=== PATIENT | male | born 1975 | race Caucasian/White ===

== ENCOUNTER 2021-02-20 06:56 | Emergency (ER) | payer SELFPAY ==
[2021-02-20 07:02] VITALS: BP 140/96; PULSE 64; RESP 16; TEMP 35.5; O2SAT 99
--- NOTE | 2021-02-20 07:05 | ED.GENADUL_ITS ---
Discharge Plan Disposition Patient Disposition: HOME Condition: Good Discharge Details Clinical Impression: Acute bacterial conjunctivitis ED Provider: Bang Bolton Home Meds and New Rx's Prescriptions: No Action No Known Home Meds RF: 0 Discharge Instructions Instructions: Conjunctivitis (ED) Additional Instructions: At this time you have evidence of bacterial conjunctivitis in your right eye, it is probably starting in your left eye soon. Please apply the Cipro drops, 2 drops to each eye every 4 hours. Use this for the next 5 to 7 days. Use warm compresses on your eyes throughout the day to prevent any crusting. If you notice any worsening of your symptoms, or any new symptoms such as vomiting, diarrhea, fever, chills, shortness of breath, chest pain, numbness, weakness, or fainting , please return immediately to the emergency department for reevaluation. Please follow up with your primary care provider as soon as possible for reassessment and reevaluation. As always, it was a pleasure participating in your medical care today. Medical Decision Making 46-year-old male with no significant past medical history who presents today for right eye irritation and crusting for the last week and 1 day of crusting and irritation of the left eye. Patient states that he has been trying to wash it gently, and is noticed some blurriness in his right eye. Mild irritation and itchy sensation in his right eye since his symptoms began. He has noticed crusting on his eye in the morning when he wakes up. This morning he noticed it for the first time out of his left eye. His right eye is slightly blurry with the crusting and discharge and irritation. He denies a history of STDs. No history of glaucoma. No severe pain. No change in vision otherwise. No other complaints at this time. Patient does not wear contact lenses. Physical exam demonstrates evidence of mild conjunctivitis in the right eye. No tenderness on palpation of the eye. Pressures symmetric in both eyes, no evidence clinically of glaucoma. No history of STDs. Symptoms suggest at this time evidence of bacterial conjunctivitis. Will recommend Cipro, we will give the bottle dropper here, recommend to drop in each eye every 4-6 hours. Discussed red flags which to return. I have extensively reviewed the treatment plan and discharge instructions with the patient. I have addressed all patient concerns at this time. The patient was made aware of what symptoms to monitor for that would warrant a return to the emergency department. Discussed the plan with the patient, they demonstrate verbal understanding and agreement with our assessment and plan at this time. The documentation in this chart was dictated using [employer] dictation software. Please excuse any dictation errors. HPI General Date/Time Provider Initiated Documentation: 02/20/21 06:56 . HPI Narrative: 46-year-old male with no significant past medical history who presents today for right eye irritation and crusting for the last week and 1 day of crusting and irritation of the left eye. Patient states that he has been trying to wash it gently, and is noticed some blurriness in his right eye. Mild irritation and itchy sensation in his right eye since his symptoms began. He has noticed crusting on his eye in the morning when he wakes up. This morning he noticed it for the first time out of his left eye. His right eye is slightly blurry with the crusting and discharge and irritation. He denies a history of STDs. No history of glaucoma. No severe pain. No change in vision otherwise. No other complaints at this time. Patient does not wear contact lenses. Related Data Home Medications Medication Instructions Recorded Confirmed Unknown [No Known Home Meds] 02/20/21 02/20/21 Allergies Allergy/AdvReac Type Severity Reaction Status Date / Time No Known Allergies Allergy Unverified 02/20/21 07:08 Review of Systems All systems reviewed & are unremarkable except as noted in HPI and below FOR[facility] Surgical History shoulder surgery Social History Smoking/Tobacco Use Status: Current every day Tobacco Type: cigarettes Smoking risk assessment performed?: Yes Drug use: Occasionally Substance use type: marijuana Exam Narrative Exam Narrative: 1.Const: Well-nourished, Well-developed, appearing stated age 2.Eyes: PERRL and symmetrical lids. Right eye EOMI, PERRL, notable conjunctival injection peripheral vision intact. No nystagmus. No clinical signs of septal/orbital cellulitis, no redness around the eye, no proptosis. No hyphema, no signs of trauma around the eye, no periorbital emphysema. No sluggishness of the pupil. No ophthalmoplegia. No afferent pupillary defect. Fluorescein exam is negative for corneal abrasion, negative Dada sign. Visual acuity as documented in nursing chart. Palpation of the eye demonstrates no tenderness whatsoever. No asymmetric firmness to suggest glaucoma Left eye: Unremarkable 3.ENT: Atraumatic external nose and ears. Moist MM. Neck: Symmetric, trachea m idline, No thyromegaly. 4.CVS: +S1/S2, No murmurs or gallops. Peripheral pulses 2+ and equal in all extremities. Brisk capillary refill in all extremities. 5.RESP: Unlabored respiratory effort. Clear to auscultation bilaterally. No wheezes rales or rhonchi 6.GI: Soft, Nontender/Nondistended, No hepatosplenomegaly. No guarding or rebound. 7.MSK: Normocephalic/Atraumatic, Extremities w/o deformity or ttp No cyanosis or clubbing, Normal movement of all extremities 8.Skin: Warm, Dry. No rashes or lesions. 9.Neuro: defence force member other ranks II-XII grossly intact. Sensation grossly intact, no focal neurolo gic deficits. 10.Psych: (AAO) x3. Appropriate mood and affect
[2021-02-20] MEDS: Fluorescein STRIPS 100/BOX 1 MG (07:23)
[2021-02-20] MEDS: Tetracaine 0.5% 4 ML BTL (07:24)
== END 2021-02-20 07:23 | disposition home or self-care (01) ==
LOC: ER 07:27
PROVIDERS: Emergency Provider Student in an Organized Health Care Education/Training Program
DX: H10.021 Other mucopurulent conjunctivitis, right eye (principal); H57.12 Ocular pain, left eye
CPT/HCPCS: 99283

== ENCOUNTER 2021-10-18 11:02 | Emergency (ER) | payer SELFPAY ==
[2021-10-18 11:18] VITALS: BP 132/87; PULSE 74; RESP 16; TEMP 36.4; O2SAT 98
--- NOTE | 2021-10-18 11:55 | ED.GENADUL_ITS ---
Discharge Plan Disposition Patient Disposition: HOME Condition: Stable Discharge Details Clinical Impression: Acute left lumbar radiculopathy Primary Care Provider: Unknown,Unknown ED Provider: Shantal Mishra Home Meds and New Rx's Prescriptions: New prednisone 20 mg tablet 40 mg PO DAILY Qty: 10 0RF cyclobenzaprine 10 mg tablet 10 mg PO TID PRNQty: 10 0RF oxycodone 5 mg capsule 5 mg PO TID PRNQty: 8 0RF Continued ibuprofen 200 mg Capsule 600 mg PO Q6H PRN0RF Discharge Instructions Additional Instructions: Please take medications as prescribed Follow-up with your primary care physician to establish care, having care management contact you Refrain from lifting more than 5 pounds Return earlier should you have new or worsening complaints including changes in bowel or bladder, fever, chills, groin numbness Discharge Data Discharge Date/Time-TO BE ENTERED AT DEPARTURE: 10/18/21 12:22 Medical Decision Making Patient appears well, no clinical evidence of cauda equina syndrome Placed on prednisone, small course of oxycodone with risk of addiction reviewed Cyclobenzaprine muscle relaxation Return precautions discussed and patient expressed understanding Discharged home in stable condition with stable vitals, low threshold to return with new or worsening complaints Referral to PCP and establish care HPI General Date/Time Provider Initiated Documentation: 10/18/21 11:15 . HPI Narrative: This 46-year-old male presents with report of back pain. He was moving into a new home and injured his back secondary to heavy lifting. He states the pain radiates down his left leg. He denies any numbness or tingling. He denies any chest pain or shortness of breath. He denies any abdominal discomfort. He denies any groin numbness or tingling history of illicit drug use, or weakness to his extremities. He denies any changes in bowel or bladder. He has a history of back pain but never quite like this in the past. Pain is exacerbated with movement and he describes it as a spasm like sensation. has been able to ambulate today reportedly. Related Data Home Medications Medication Instructions Recorded Confirmed cyclobenzaprine 10 mg tablet 10 mg PO TID PRN #10 tab 10/18/21 ibuprofen 200 mg capsule 600 mg PO Q6H PRN 10/18/21 10/18/21 oxycodone 5 mg capsule 5 mg PO TID PRN #8 cap 10/18/21 prednisone 20 mg tablet 40 mg PO DAILY #10 tab 10/18/21 Previous Rx's Medication Instructions Recorded cyclobenzaprine 10 mg tablet 10 mg PO TID PRN #10 tab 10/18/21 oxycodone 5 mg capsule 5 mg PO TID PRN #8 cap 10/18/21 prednisone 20 mg tablet 40 mg PO DAILY #10 tab 10/18/21 Allergies Allergy/AdvReac Type Severity Reaction Status Date / Time No Known Allergies Allergy Unverified 10/18/21 11:22 General Stated Complaint: Nk/Back Pain VERN: 4 Review of Systems All systems reviewed & are unremarkable except as noted in HPI and below PFSH All Active Problems (Updated 10/18/21 @ 12:08 by RUI Ortega) Acute bacterial conjunctivitis (Acute) Acute left lumbar radiculopathy (Acute) Surgical History shoulder surgery Social History Smoking/Tobacco Use Status: Current every day Tobacco Type: cigarettes Smoking risk assessment performed?: Yes Drug use: Occasionally Substance use type: marijuana Do you feel safe at home: Yes Do you feel safe in your relationship?: Yes Exam Const General: cooperative Orientation: alert and oriented x3 Neck Neck: normal visual inspection Other: Range of motion intact Resp Effort & Inspection: normal respiratory effort Auscultation: clear to auscultation bilaterally Cardio Rate: regular rate Rhythm: regular rhythm Other: Distal pulses intact GI Inspection: normal to inspection Other: No abdominal bruit or pulsatile mass, no CVA tenderness, no abdominal tenderness Back/Spine/Pelvis Back: no CVA tenderness Skin General skin exam: no rashes or lesions noted Neuro General: patient alert and patient oriented x3 Other: Distal pulses intact, strength and sensation intact distally, negative Babinski, negative straight leg raise, strength and sensation intact distally Extrem Other: Distal pulses intact, strength and sensation intact Course Vital Signs Vital signs: Vital Signs Temperature 36.4 C L 10/18/21 11:18 Pulse 74 10/18/21 11:18 Respiratory Rate 16 10/18/21 11:18 Blood Pressure 132/87 10/18/21 11:18 Pulse Oximetry 98 10/18/21 11:18 Temperature 36.4 C L 10/18/21 11:18 Temperature Source Temporal Artery Scan 10/18/21 11:18 Pulse 74 10/18/21 11:18 Respiratory Rate 16 10/18/21 11:18 Respiratory Effort Non-Labored 10/18/21 11:20 Blood Pressure 132/87 10/18/21 11:18 Blood Pressure Position Sitting 10/18/21 11:18 Pulse Oximetry 98 10/18/21 11:18 Oxygen Delivery Method Room Air 10/18/21 11:18 Oxygen Flow Rate 0 10/18/21 11:18 Pain Level 10 10/18/21 11:23 PAWSS Have you Been Recently Intoxicated or Drunk Within the Last 30 days?: Yes Have you Ever Experienced Previous Episodes of Alcohol Withdrawal?: No Have you ever Experienced Withdrawal Seizures?: No Have you ever Experienced Delirium Tremens(DT)s?: No Have you ever undergone Alcohol Rehabilitation Treatment (i.e, inpt ot outpatient treatment programs)?: No Have you ever Experienced Blackouts?: No Have you ever Combined Alcohol with other Downers within the last 90 days?: No Have you ever Combined Alcohol with any other Substance of Abuse during the last 90 days?: No Positive Blood Alcohol level on Presentation? [PCS.BAL]: No Evidence of Increased Autonomic Activity (i.e. HR>120, tremor, sweating, agitation, nausea)?: No Result: 1
--- NOTE | 2021-10-18 12:14 | NUR.NOTE ---
Shantal requesting evaluation with PCP to develope establishment. ERIBERTO
--- NOTE | 2021-10-20 12:22 | PDOC.ERCMACT ---
- If Service Date Differs Date of service: 10/20/21 Time of Service: 12:22 Care Management Activity Note Damian is seen in the ED for acute left lumbar radiculopathy. At the request of ED provider, CM coordinates a referral to Dr. Layne Hidalgo of [facility], on-call provider, to assist Damian in obtaining a follow up appointment and in establishing care with a PCP.
== END 2021-10-18 12:22 | disposition home or self-care (01) ==
PROVIDERS: Emergency Provider Physician Assistant
DX: M54.16 Radiculopathy, lumbar region (principal); X50.0XXA Overexertion from strenuous movement or load, initial encounter
CPT/HCPCS: 99283

== ENCOUNTER 2021-11-16 07:44 | Emergency (ER) | payer MEDICAID, SELFPAY ==
[2021-11-16 07:47] VITALS: BP 139/99; PULSE 64; RESP 14; TEMP 36.7; O2SAT 100
--- NOTE | 2021-11-16 07:52 | ED.GENADUL_ITS ---
Discharge Plan Disposition Patient Disposition: HOME Condition: Good Discharge Details Clinical Impression: Biceps tendinitis, Subacromial impingement of left shoulder Primary Care Provider: Unknown,Unknown ED Provider: Chen Aguirre Home Meds and New Rx's Prescriptions: Continued ibuprofen 200 mg Capsule 600 mg PO Q6H PRN Discharge Instructions Instructions: Tendinitis (ED) Additional Instructions: Your exam is most consistent with inflammation of your biceps tendon as well as your rotator cuff. You are injected with steroid local anesthetic. Please try to rest the shoulder for the next few days. Please try to avoid overhead heavy lifting. May use Tylenol and ibuprofen as needed for discomfort. Ibuprofen 600 mg 4 times a day as needed, Tylenol maximum 4000 mg daily. If he develops redness, warmth, drainage, increased pain, fever/chills or other new/worsening symptom please seek care urgently once again. Otherwise, I have referred you to orthopedics, number listed below. Please call on Wednesday to schedule follow-up appointment. I have also asked our care management to assist in local primary care follow-up. Referrals: Roque Finn MD [ [facility]FF PHYSICIAN] - Medical Decision Making Patient is a pleasant 46-year-old [id number] male past medical history is pertinent for right shoulder rotator cuff injury with subsequent surgical intervention, presenting today with chief complaint of left shoulder pain. 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 For the past 2 days this has significant pain has been limiting his ability to perform his activities of daily living. Indicates the lateral and anterior aspect of the left shoulder is area of maximal tenderness. States that he can have some occasional tingling radiates into the left hand. Further, feels that he is actual sensation is intact. States the pain can radiate laterally down to the elbow. Denies any trauma, no fall. Denies any neck pain or previous neck injuries. On exam, patient appears nontoxic. He has full range of motion of the left s houlder although this is lower and clearly more comfortable than the contralateral side. I not appreciate any joesph weakness with testing the rotator cuff but patient has clear discomfort particularly with supraspinatus testing. Patient also has pain over the bicipital groove and positive speeds e xam to suggest biceps tendinitis. Negative Nazario. Patient's history and presentation is most consistent with subacromial impingement syndrome biceps tendinitis. Patient I discussed risks benefits as well as expected procedural steps associated with subacromial joint injection. Plan to inject with lidocaine and Kenalog. Patient has had injection to the contralateral side historically without complication. Patient is currently trying to set up his insurance, feels that this will be set up soon. As he has no trauma or reasonably if he has fracture or acute bony pathology, I do not feel that x-ray is warranted and would likely cause undue cost. Patient will need continued care and likely orthopedic follow-up, we did discuss obtaining an x-ray but will hold off until his insurance is set up and he has his orthopedic follow-up. Please see procedure note. Patient performed using standard sterile technique. Patient injected with 4 mL 1% lidocaine and 40 mg Kenalog. this well no co mplications. Patient discussed further care of the shoulder. Advised that he may continue with Tylenol and/or ibuprofen as needed for discomfort. Encouraged that he try to abstain from overhead heavy lifting as much as possible. Patient did not have a local primary care provider after care management team to assist with this. Also referral to orthopedics. Patient previously had orthopedic care at [facility], he is not sure if he would like to go back there or come here so we will refer to our orthopedic group. Return precautions were discussed, particular signs and symptoms of infection. COVID questions and concerns were addressed and he is agreement this plan. HPI General Date/Time Provider Initiated Documentation: 11/16/21 07:52 . Limitations to Documentation: no limitations . Information obtained by: patient and RN notes reviewed . History of Present Illness 46 year old M presents to the emergency department with the chief complaint of left shoulder pain, described as severe, with intensity rated at 10. Quality is described as aching, and is localized to the left and uppe r extremity. Patient extremity. Patient started experiencing this day(s) and it has been constant. Immobilization improves symptom(s), Movement worsens symptoms . Patient notes no other symptoms.. Patient did receive the following treatments prior to arrival, NSAID Related Data Home Medications Medication Instructions Recorded Confirmed ibuprofen 200 mg capsule 600 mg PO Q6H PRN 10/18/21 11/16/21 Allergies Allergy/AdvReac Type Severity Reaction Status Date / Time No Known Allergies Allergy Unverified 10/18/21 11:22 General Stated Complaint: Orthopedic VERN: 4 Review of Systems Constitutional Constitutional: Reports as per HPI, Denies fever(s) and Denies weakness Cardiovascular Cardiovascular: Reports as per HPI Respiratory Respiratory: Reports as per HPI and Denies cough Musculoskeletal Musculoskeletal: Reports as per HPI and Reports tingling (LUE) Integumentary/Breasts Skin/Breast: Reports as per HPI, Denies rash and Denies wounds Neurologic Neurologic: Reports as per HPI, Reports tingling (LUE) and Denies weakness PFS All Active Problems (Updated 11/16/21 @ 08:45 by RUI Snell) Acute bacterial conjunctivitis (Acute) Acute left lumbar radiculopathy (Acute) Biceps tendinitis (Acute) Subacromial impingement of left shoulder (Acute) Surgical History shoulder surgery Social History Smoking/Tobacco Use Status: Current every day Tobacco Type: cigarettes Smoking risk assessment performed?: Yes Alcohol Intake: current Alcohol Intake frequency: 0-2 drinks per day Alcohol type: beer Drug use: Occasionally Substance use type: marijuana Do you feel safe at home: Yes Do you feel safe in your relationship?: Yes Exam Const General: cooperative, healthy appearing, uncomfortable (difficulty moving LUE), no acute distress, well developed and well groomed Nutritional Appearance: average body habitus and well nourished Orientation: alert and awake Resp Effort & Inspection: normal respiratory effort, able to speak in complete sentences and no respiratory distress Cardio Rate: regular rate Rhythm: regular rhythm Back/Spine/Pelvis Cervical Spine: No cervical spinal tenderness Skin General skin exam: no rashes or lesions noted Lesions: no lesions Rashes: no rashes Trauma: no lacerations or abrasions Neuro General: patient alert and patient awake Cognition: normal cognition Speech: speech normal Gait: normal gait Motor: muscle tone normal throughout Sensory Exam: no sensory deficits noted Extrem Shoulder/upper arm images: 1. 2. Areas of maximal tenderness. Patient does have full range of motion but discomfort with maximal movements of both forward elevation, external rotation and internal rotation. Pain is primarily at the subacromial space and pain radiates down to the left elbow. He also has tenderness with palpation over the bicipital groove and with speeds testing. No Nazario deformity. He has 2+ distal pulses, sensation is intact. Axillary nerve testing is intact. Full range of motion of elbow, wrist, hand. Patient has positive Neer and Osorio. Psych Appearance: grossly normal and well kempt Mental Status: mental status grossly normal Speech and Movement: speech and movement normal Course Vital Signs Vital signs: Vital Signs Temperature 36.7 C 11/16/21 07:47 Pulse 64 11/16/21 07:47 Respiratory Rate 14 11/16/21 07:47 Blood Pressure 139/99 H 11/16/21 07:47 Pulse Oximetry 100 11/16/21 07:47 Temperature 36.7 C 11/16/21 07:47 Temperature Source Temporal Artery Scan 11/16/21 07:47 Pulse 64 11/16/21 07:47 Respiratory Rate 14 11/16/21 07:47 Respiratory Effort Non-Labored 11/16/21 07:50 Blood Pressure 139/99 H 11/16/21 07:47 Blood Pressure Position Sitting 11/16/21 07:47 Pulse Oximetry 100 11/16/21 07:47 Oxygen Delivery Method Room Air 11/16/21 07:47 Oxygen Flow Rate 0 11/16/21 07:47 Pain Level 10 11/16/21 07:47 Procedures Joint Aspiration/Injection Joint Asp./Inject. 1: Time Out Performed: Yes Side of body: left Joint Aspirated: shoulder (no aspiration, injuected with kenalog and lidocaine) Skin Prep: Chlorhexidene Local Anesthetic: Lidocaine 1% Amount of anesthesia used (mL): 4 Needle Size Used: 22G Medication Injected, if any: Triamcinolone Acetate Patient Tolerated Procedure: well and no complications Complications: none PAWSS Have you Been Recently Intoxicated or Drunk Within the Last 30 days?: No Have you Ever Experienced Previous Episodes of Alcohol Withdrawal?: No Have you ever Experienced Withdrawal Seizures?: No Have you ever Experienced Delirium Tremens(DT)s?: No Have you ever undergone Alcohol Rehabilitation Treatment (i.e, inpt ot outpatient treatment programs)?: No Have you ever Experienced Blackouts?: No Have you ever Combined Alcohol with other Downers within the last 90 days?: No Have you ever Combined Alcohol with any other Substance of Abuse during the last 90 days?: No Positive Blood Alcohol level on Presentation? [PCS.BAL]: No Evidence of Increased Autonomic Activity (i.e. HR>120, tremor, sweating, agitation, nausea)?: No Result: 0
[2021-11-16] MEDS: Triamcinolone 40 MG/ML VIAL IJ (08:33)
[2021-11-16] MEDS: Lidocaine 1% Multi-Dose 50 ML VIAL IJ (08:33)
--- NOTE | 2021-11-16 08:48 | NUR.NOTE ---
Chen requested referral to PCP for establishment and Orthopaedic referral for biceps tendonitis and subacromial impingement syndrome [facility]
== END 2021-11-16 08:51 | disposition home or self-care (01) ==
PROVIDERS: Emergency Provider Physician Assistant
DX: M75.22 Bicipital tendinitis, left shoulder (principal); M25.812 Other specified joint disorders, left shoulder; X50.0XXA Overexertion from strenuous movement or load, initial encounter; Z98.890 Other specified postprocedural states
CPT/HCPCS: 96372; 99284; 99283

== ENCOUNTER → 2022-02-27 00:39 | Outpatient (CLI) | payer MEDICAID, SELFPAY ==
--- OUTSIDE RECORDS SUMMARY | 2022-02-27 00:40 | XMS_ITS | Encounter Summary ---
:1975 [address] [facility] Address [address] [place] [address] Care Team Providers Name Role Phone None, Provider Primary Care Provider Unavailable Reason for Referral Consult (See Order Priority) - Closed Specialty Diagnoses / Procedures Referred By Contact Refer red To Contact Orthopedic Surgery Diagnoses Acute pain of left shoulder Gabriel Zamora PA-C [facility] [address] [facility] [address], [place] [address] [address] [place] [address] Phone: Fax: Referral ID Status Reason Start Date Expiration Date Visits V isits Requested Authorized [id number] Closed Specialty 12/02/2021 1 1 Services Required Question Answer Reason for Request: left shoulder pain with numb ness and tingling Reason for Visit Reason Comments Shoulder Pain left shoulder pain x 2 weeks . denies trauma. Encounter Details Date Type Department Care Team Description 12/02/2021 Emergency [facility] - Gabriel Zamora PA-C Acute pain of left shoulder (Primary Dx) ; [facility] Emergency [address] Acute cervical radiculopathy Department [place], [place] [address] [place] [address] [place], [place] [id number] Social History Tobacco Use Types Packs/Day Years Used Date Never Smoker Tobacco Cessation: Counseling Given: No Alcohol Use Standard Drinks/Week Comments Never 0 (1 standard drink = 0.6 oz pure alcoho l) Sex Assigned at Date Recorded Not on file documented as of this encounter Last Filed Vital Signs Vital Sign Reading Time Taken Comments Blood Pressure 145/90 12/02/2021 1500 EDT Pulse 74 12/02/2021 1500 EDT Temperature 36.4 ??C (97.5 ??F) 12/02/2021 1324 EDT Respiratory Rate 16 12/02/2021 1500 EDT Oxygen Saturation 98% 12/02/2021 1500 EDT Inhaled Oxygen Concentration - - Weight - - Height - - Body Mass Index - - documented in this encounter Discharge Instructions InstructionsGabriel Zamora PA-C - 12/02/2021 You were seen today for left shoulder pain ongoing for the past 2 weeks. Your exam and x-ray do not suggest any evidence of fractures, dislocation or shoulder separation. Given the numbness and tingling in your left upper extremity, we recommend close follow-up with the orthopedic team to discuss further imaging if necessary. AttachmentsThe following attachments cannot be sent through Care Everywhere. Shoulder Pain (Yakut)documented in this encounter Medications at Time of Discharge Medication Sig Dispensed Refills Start Date End Date ketOROLAC (TORADOL) 10 mg Take 1 Tablet by 10 Tablet 0 11/13 tablet mouth every 6 hours as needed for Pain. methocarbamoL (ROBAXIN) Take 2 Tablets by 42 Tablet 0 12/0212/09/2021 750 mg tablet mouth 3 times daily for 7 days. predniSONE (DELTASONE) 20 Take 2 Tablets by 10 Tablet 0 12/07/2021 mg tablet mouth daily for 5 days. documented as of this encounter Ordered Prescriptions Prescription Sig Dispensed Refills Start Date End Date ketOROLAC (TORADOL) 10 mg Take 1 Tablet by 10 Tablet 0 11/13 tablet mouth every 6 hours as needed for Pain. methocarbamoL (ROBAXIN) Take 2 Tablets by 42 Tablet 0 12/0212/09/2021 750 mg tablet mouth 3 times daily for 7 days. predniSONE (DELTASONE) 20 Take 2 Tablets by 10 Tablet 0 12/07/2021 mg tablet mouth daily for 5 days. documented in this encounter Discharge Disposition Disposition Code Departure Means Destination Home or Self [facility] documented in this encounter ED Notes Gabriel Zamora PA-C - 12/02/2021 1435 EDT Emergency Department Visit Assessment and ED Course 46-year-old male presenting to the emergency department with left shoulder pain ongoing for the past2 weeks. He is a ewing by trade. Denies any trauma or injury to the left shoulder. Endorses numbness and tingling radiating down the left arm into the hand involving all fingers. Exam reveals patient who is unable to get comfortable ranging his shoulder completely. Mild tenderness over the anterior aspect of the joint. Pain with passive range of motion. Unable to place the backof his left hand to the lower part of his back. X-ray of the left shoulder shows no evidence of acute bony abnormality. EKG shows a normal sinus rhythm with an incomplete right bundle branch block Ventricular at 77 IL interval 122 QRS duration 94 QT/QTc 374/423 P, R, T axes 9, 71, [address] elevations. He was treated with IM Toradol, Robaxin and prednisone and oxycodone. Patient states his symptoms have not abated. He was advised to follow-up with the orthopedic clinic for reevaluation. Differential includes rotator cuff injury, calcific tendinitis, shoulder strain. Referral placed to orthopedics. Final diagnoses: Acute pain of left shoulder Acute cervical radiculopathy Disposition: Discharged Chief complaint: Left shoulder pain HPI Damian Barillas is a 46 y.o. male who presents to the ED for left shoulder pain ongoing for the past 2weeks. Pain is worsening today. Patient works as a ewing and states he has had no injury or trauma to the left shoulder. He states he has pain with range of motion. He has history of right shoulder surgery. He describes pain rating from his left neck to the left shoulder and numbness and tingling radiating down his left arm and into the left hand. Numbness involves all of the digits. Denies chestpain or shortness of breath. History was provided by: Patient Patient's pertinent PMH, FH, SH were reviewed and edited as necessary. Review of Systems Musculoskeletal: Positive for joint pain (Left shoulder) and neck pain. Neurological: Positive for tingling. All other systems reviewed and are negative. A 10-point review of systems was performed. The patient answered negative to all questions with the exceptions of those explicitly detailed as positives in the HPI. Pertinent negatives are also explicitly stated. Physical Exam BP (!) 145/90 Pulse 74 Temp 36.4 ??C (97.5 ??F) Resp 16 SpO2 98% A medical screening exam was performed. Physical Exam Vitals and nursing note reviewed. Constitutional: General: He is not in acute distress. Appearance: He is well-developed and well-nourished. HENT: Nose: Nose normal. No nasal discharge. Mouth/Throat: Mouth: Mucous membranes are moist. Pharynx: Oropharynx is clear. Eyes: Extraocular Movements: EOM normal. Conjunctiva/sclera: Conjunctivae normal. Pupils: Pupils are equal, round, and reactive to light. Cardiovascular: Rate and Rhythm: Normal rate and regular rhythm. Heart sounds: Normal heart sounds. Pulmonary: Effort: Pulmonary effort is normal. No respiratory distress. Breath sounds: Normal breath sounds. Abdominal: General: Bowel sounds are normal. Palpations: Abdomen is soft. Tenderness: There is no abdominal tenderness. Musculoskeletal: General: Normal range of motion. Right shoulder: Normal. Left shoulder: No swelling, deformity, effusion, laceration, tenderness, bony tenderness or crepitus. Normal range of motion (Pain with range of motion to the left shoulder specifically to the anterior aspect of the left shoulder.). Normal strength. Normal pulse. Cervical back: Normal range of motion and neck supple. Skin: General: Skin is warm and dry. Neurological: Mental Status: He is alert and oriented to person, place, and time. Cranial Nerves: No cranial nerve deficit. Psychiatric: Mood and Affect: Mood and affect normal. An EKG was obtained and independently interpreted. Imaging obtained was reviewed and independently interpreted. Procedures Procedures documented in this encounter Plan of Treatment Scheduled Referrals Name Type Priority Associated Order Schedule Diagnoses AMB CONS/FOLLOW UP Outpatient Referral Urgent Acute pain of l eft Expected: ORTHOPEDICS - [facility] shoulder 2 (Approximate), Expires: 12/02/2022 documented as of this encounter Procedures Procedure Name Priority Date/Time Associated Diagnosis Comme nts ECG REPORT - 12/02/2021 16:20 SCANNED EDT XR SHOULDER LEFT 2 STAT 12/02/2021 15:34 Resul ts for this OR MORE VIEWS EDT procedure are in the results section. EKG 12-LEAD STAT 12/02/2021 14:27 Results for this EDT procedure are i n the results section. documented in this encounter Results XR SHOULDER LEFT 2 OR MORE VIEWS (12/02/2021 15:34 EDT) Anatomical Region Laterality Modality Left Computed Radiography Specimen Impressions [facility] RAD[facility]OLOG[facility] - 12/02/2021 15:36 EDT No fracture. Narrative [facility] - 12/02/2021 15:36 EDT INDICATION: pain. COMPARISON: None. TECHNIQUE: 3 views of the left shoulder were obtained. 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 Bone density is normal. The soft tissues are unremarkable. No fracture or osteonecrosis is identified. Procedure Note Kulwant Leon MD - 2 INDICATION: pain. COMPARISON: None. TECHNIQUE: 3 views of the left shoulder were obtained. 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 Bone density is normal. The soft tissues are unremarkable. No fracture or osteonecrosis is identified. IMPRESSION No fracture. Performing Organization Address City/State/ZIP Code Phon e Number [facility] EKG 12-LEAD (12/02/2021 14:27 EDT) Specimen Narrative [facility] - 16:17 EDT ? [facility] ? Test Date: ?2021-12-02 Pat Name: ? DAMIAN SUSIE ?Department: ? Room: ? AHALL01 Gender: ? Male ? Registered Appraiser: ?? PL : ?1975 ? Requested By: AMARIS Roman Order Number: [id number] ? Tree TREVIÑO: ?? SCOTT GANDHI MD ? Measurements Intervals ?[place] ? Rate: ? 77 ? P: ?9 IL: ? 122 ?QRS: ?71 QRSD: ? 94 ? T: ?71 QT: ? 374 ? QTc: ?423 ? Interpretive Statements Normal sinus rhythm Incomplete right bundle branch block No previous ECG available for comparison I reviewed the tracing and have either a greed or edited the findings in this report. Electronically Signed On 12-03-19 16:17:48 EDT by SCOTT GANDHI MD. Procedure Note Scott Gandhi MD - 12/02/2021 [facility] Test Date: 2021-12-02 Pat Name: DAMIAN BARILLAS Department: Room: [place] [address] Gender: Male Registered Appraiser: PL : 1975 Requested By: AMARIS Roman Order Number: [id number] Reading MD: Sushma GANDHI MD Measurements Intervals [place] Rate: 77 P: 9 IL: 122 QRS: 71 QRSD: 94 T: 71 QT: 374 QTc: 423 Interpretive Statements Normal sinus rhythm Incomplete right bundle branch block No previous ECG available for comparison I reviewed the tracing and have either a greed or edited the findings in this report. Electronically Signed On 12-03-19 16:17:48 EDT by SCOTT GANDHI MD. Performing Organization Address City/State/ZIP Code Phon e Number [facility] documented in this encounter Visit Diagnoses Diagnosis Acute pain of left shoulder - Primary Acute cervical radiculopathy Brachial neuritis or radiculitis nos documented in this encounter Administered Medications Inactive Administered Medications - up to 3 most recent administrations Medication Order MAR Action Action Date Dose Rate Site ketOROLAC (TORADOL) injection 30 mg Given 12/02/2021 14:48 EDT 30 mg 30 mg, intramuscular, NOW X1, 1 dose, On Wed12/02/21 at 1500, STAT methocarbamoL (ROBAXIN) tablet 1,500 mg Given 12/02/2021 14:48 EDT 1,500 mg 1,500 mg, oral, NOW X1, 1 dose, On Wed12/02/21 at 1500, STAT oxyCODONE (ROXICODONE) immediate release tablet 5 Given 12/02/2021 15:10 EDT 5 mg mg 5 mg, oral, NOW X1, 1 dose, On Wed12/02/21 at 1530, STAT predniSONE (DELTASONE) tablet 40 mg Given 12/02/2021 14:48 EDT 40 mg 40 mg, oral, NOW X1, 1 dose, On Wed12/02/21 at 1500, Routine documented in this encounter Active and Recently Administered Medications Times are shown in EDT. Scheduled Medication Order 11/30/2021 12/01/2021 12/02/2021 ketOROLAC (TORADOL) injection 30 mg (COMPLETED) 1448 (Given - Provider: Riddhi Greer RN) 30 mg, intramuscular, NOW X1, 1 dose, On Wed12/02/21 at 1500, ST AT methocarbamoL (ROBAXIN) tablet 1,500 mg (COMPLETED) 1448 (Given - Provider: Riddhi Greer RN) 1,500 mg, oral, NOW X1, 1 dose, On Wed12/02/21 at 1500, STAT oxyCODONE (ROXICODONE) immediate release tablet 5 mg (COMPLETED) 1510 (Given - Provider: Riddhi Greer RN) 5 mg, oral, NOW X1, 1 dose, On Wed12/02/21 at 1530, STAT predniSONE (DELTASONE) tablet 40 mg (COMPLETED) 1448 (Given - Provider: Riddhi Greer RN) 40 mg, oral, NOW X1, 1 dose, On Wed12/02/21 at 1500, Routine documented in this encounter Orders Procedures Count Last Ordered Date First Ordered Date ECG REPORT - SCANNED 12/04/2021 documented in this encounter Care Teams Superintendent Warehouse Relationship Specialty Start Date End Date None, Provider PCP - General 12/02/21 documented as of this encounter
--- OUTSIDE RECORDS SUMMARY | 2022-02-27 00:40 | XMS_ITS | Clinical Summary ---
:1975 Author Organization [facility] Address [address] [place] [address] Care Team Providers Name Role Phone None, Provider Primary Care Provider Unavailable Allergies No known active allergies Medications Medication Sig Dispensed Refills Start Date End Date Status ketOROLAC (TORADOL) 10 Take 1 Tablet by 10 Tablet 0 12/02/2021 Active mg tablet mouth every 6 hours as needed for Pain. Encounters Date Type Specialty Care Team Description 12/02/2021 Emergency Emergency Medicine Gabriel Zamora PA-C Acute pain of left shoulder (Primary Dx); Acute cervical radiculopathy from Last 3 Months Social History Tobacco Use Types Packs/Day Years Used Date Never Smoker Tobacco Cessation: Counseling Given: No Alcohol Use Standard Drinks/Week Comments Never 0 (1 standard drink = 0.6 oz pure alcoho l) Sex Assigned at Date Recorded Not on file Last Filed Vital Signs Vital Sign Reading Time Taken Comments Blood Pressure 145/90 12/02/2021 1500 EDT Pulse 74 12/02/2021 1500 EDT Temperature 36.4 ??C (97.5 ??F) 12/02/2021 1324 EDT Respiratory Rate 16 12/02/2021 1500 EDT Oxygen Saturation 98% 12/02/2021 1500 EDT Inhaled Oxygen Concentration - - Weight - - Height - - Body Mass Index - - Plan of Treatment Health Maintenance Due Date Last Done Comments Hepatitis C Screen 1975 COVID-19 Vaccine (#1) 1975 Procedures Procedure Name Priority Date/Time Associated Diagnosis Comme nts ECG REPORT - 12/02/2021 16:20 SCANNED EDT XR SHOULDER LEFT 2 STAT 12/02/2021 15:34 Resul ts for this OR MORE VIEWS EDT procedure are in the results section. EKG 12-LEAD STAT 12/02/2021 14:27 Results for this EDT procedure are i n the results section. from Last 3 Months Results ECG REPORT - SCANNED (12/02/2021 16:20 EDT) Specimen Narrative This result has an attachment that is no t available. XR SHOULDER LEFT 2 OR MORE VIEWS (12/02/2021 15:34 EDT) Anatomical Region Laterality Modality Left Computed Radiography Specimen Impressions [facility] RAD[facility]OLOG[facility] - 12/02/2021 15:36 EDT No fracture. Narrative [facility] - 12/02/2021 15:36 EDT INDICATION: pain. COMPARISON: [...] Organization Address City/State/ZIP Code Phon e Number [facility] EKG 12-LEAD (12/02/2021 14:27 EDT) Specimen Narrative [facility] - 16:17 EDT ? [facility] ? Test Date: ?2021-12-02 Pat Name: ? DAMIAN BARILLAS ?Department: ? Room: ? AHALL01 Gender: ? Male ? Nurse Assessor: ?? PL : ?1975 ? Requested By: AMARIS Roman Order Number: [id number] ? Tree MD: ?? SCOTT GANDHI MD ? Measurements Intervals ?[place] ? Rate: ? 77 ? P: ?9 MO: ? 122 ?QRS: ?71 QRSD: ? 94 [...] Procedure Note Scott Gandhi MD - 12/02/2021 [facility] Test Date: 2021-12-02 Pat Name: DAMIAN BARILLAS Department: Room: [place] [address] Gender: Male Nurse Assessor: PL : 1975 Requested By: AMARIS Roman Order Number: [id number] Reading MD: Sushma GANDHI MD Measurements Intervals [place] Rate: 77 P: 9 MO: 122 QRS: 71 QRSD: 94 T: 71 QT: 374 QTc: 423 Interpretive Statements Normal sinus rhythm Incomplete right bundle branch block No previous ECG available for comparison I reviewed the tracing and have either a greed or edited the findings in this report. Electronically Signed On 12-03-19 16:17:48 EDT by CSOTT GANDHI MD. Performing Organization Address City/[facility] Code Phon e Number [facility] from Last 3 Months Insurance Payer Benefit Plan / Subscriber ID Effective Phone Address T ype Group Dates [place] [id number] 2021-Prese [address] [place] [facility] [id number] Damian Miguel Personal/Family Self 1975 [phone] [place] [address] EranDamian Personal/Family Self 1975 [phone] [place] [address] EranDamian Personal/Family Self 1975 [phone] [place] [address] Care Teams Mechanical Manager Relationship Specialty Start Date End Date None, Provider PCP - General 12/02/21
--- NOTE | 2022-02-27 07:45 | DI.RAD_ITS ---
Exam(s) XR SHOULDER LT COMPLETE 2+V EXAM: XR SHOULDER LT COMPLETE 2+V CLINICAL HISTORY: left shoulder pain and extension in bicep tendon,strain,m25.512,s46.212a. TECHNIQUE: 2D digital imaging was performed. COMPARISON: CR RIGHT SHOULDER COMPLETE from 01/03/2015 FINDINGS: Five views: There is no evidence of fracture or dislocation nor abnormal soft tissue calcifications. There are m oderate degenerative changes in the humeral joint. There is mild joint space narrowing and opposing small osteophytes on inferior articular surfaces of the humeral head and osseous glenoid. Subacromia l space is not diminished. AC joint appears unremarkable. Bone density normal. No osseous lesions. IMPRESSION: Moderate degenerative changes in the glenohumeral joint. No fractures. DATA REPOSITORY: RADIATION DOSE DELIVERED:
== END ==
DX: M19.012 Primary osteoarthritis, left shoulder (principal)
CPT/HCPCS: 73030

== ENCOUNTER 2023-09-28 05:46 | Emergency (ER) | payer MEDICAID, SELFPAY ==
[2023-09-28 05:49] VITALS: BP 152/99; PULSE 77; RESP 16; TEMP 36.6; O2SAT 98
--- NOTE | 2023-09-28 06:17 | W.ED.GENAD ---
Discharge Plan Disposition Patient Disposition: Home Condition: Good Discharge Details Clinical Impression: Pain, dental Primary Care Provider: Sanya Redd ED Provider: Lyndsey Merida Home Meds and New Rx's Prescriptions: New amoxicillin-pot clavulanate 875-125 mg tablet 1 tab PO BID Qty: 14 0RF amoxicillin-pot clavulanate 875-125 mg tablet 1 tab PO BID Qty: 14 0RF Continued acetaminophen 500 mg tablet 1,000 mg PO QID Qty: 90 0RF meloxicam 15 mg tablet 15 mg PO DAILY Qty: 90 3RF Rx Instructions: WITH FOOD Discharge Instructions Instructions: Toothache (ED) Additional Instructions: Antibiotic twice a day for the next 14 days. Call a dentist to schedule an appointment to have your tooth addressed. Return to the emergency department for new or worsening symptoms including fever, uncontrolled pain, worsening swelling, or if you have any other concerns. HPI General Mode of arrival: ambulatory. Date/Time Provider Initiated Documentation: 09/28/23 05:50. Limitations to Documentation: no limitations. Information obtained by: patient. HPI Narrative: 48yo previously healthy male presenting with left lower molar pain and left sided facial swelling. Tooth pain started around 5 days ago, progressively worsening, unrelieved by ibuprofen and oragel. Has not seen a dentist, does not have a dentist No fevers, chills, rash, nausea. vomiting, neck pain, or other concerns. Related Data Home Medications Medication Instructions Recorded Confirmed acetaminophen 500 mg tablet 1,000 mg (2 x 500 mg) PO QID pain 02/17/22 09/28/23 #90 tabs meloxicam 15 mg tablet 15 mg PO DAILY #90 tabs 05/29/22 09/28/23 amoxicillin 875 mg-potassium 1 tab PO BID #14 tabs 09/28/23 clavulanate 125 mg tablet amoxicillin 875 mg-potassium 1 tab PO BID #14 tabs 09/28/23 clavulanate 125 mg tablet Previous Rx's Medication Instructions Recorded acetaminophen 500 mg tablet 1,000 mg (2 x 500 mg) PO QID pain 02/17/22 #90 tabs meloxicam 15 mg tablet 15 mg PO DAILY #90 tabs 05/29/22 amoxicillin 875 mg-potassium 1 tab PO BID #14 tabs 09/28/23 clavulanate 125 mg tablet amoxicillin 875 mg-potassium 1 tab PO BID #14 tabs 09/28/23 clavulanate 125 mg tablet Allergies Allergy/AdvReac Type Severity Reaction Status Date / Time No Known Allergies Allergy Unverified 02/17/22 11:07 General Stated Complaint: DentalOral VERN: 4 Review of Systems Narrative: see HPI Exam Narrative Exam Narrative: General: Alert, well appearing, well nourished, in no acute distress. Head: Normocephalic, atraumatic. Left facial swelling and tenderness, no palpable mass. No mastoid tenderness. Neck: Trachea midline, ?Neck supple. No anterior neck tenderness. ENT: ?MMM.? Multiple carious teeth. Cracked left lower molar. No visible apical/periapical abscess. Cardiac: No cyanosis. Resp: No respiratory distress. Speaking in full sentences. . Abd: ?Non-distended Extremities: ?No deformities.? No peripheral edema. Neurologic: GCS 15. ? Moves all extremities freely against gravity Course Vital Signs Vital signs: Vital Signs Temperature 36.6 C 09/28/23 05:49 Pulse 77 09/28/23 05:49 Respiratory Rate 16 09/28/23 05:49 Blood Pressure 152/99 H 09/28/23 05:49 Pulse Oximetry 98 09/28/23 05:49 Temperature 36.6 C 09/28/23 05:49 Temperature Source Temporal Artery Scan 09/28/23 05:49 Pulse 77 09/28/23 05:49 Respiratory Rate 16 09/28/23 05:49 Blood Pressure 152/99 H 09/28/23 05:49 Blood Pressure Position Sitting 09/28/23 05:49 Pulse Oximetry 98 09/28/23 05:49 Oxygen Delivery Method Room Air 09/28/23 05:49 Oxygen Flow Rate 0 09/28/23 05:49 Pain Level 9 09/28/23 05:56 Medical Decision Making 48yo previously healthy male presenting with left lower molar pain and left sided facial swelling. Tooth pain started around 5 days ago, progressively worsening, unrelieved by ibuprofen and oragel. Has not seen a dentist, does not have a dentist No systemic symptoms. Vital signs reassuring on arrival. Not septic. Cracked left lower molar on exam, no visible intraoral abscess. Some facial swelling and tenderness, no neck tenderness. Not concerning for deep space infection; would not get CT imaging at this time. Tylenol and toradol for pain. Prescribed 14 day course of amoxicillin and given dental list, instructed to follow up with dentist [facility]. Discharged home; discharge instructions and return precautions were reviewed with patient who verbalized understanding. All questions were answered and he is in agreement with the plan. Quality:SDOH Health Related Social Needs: Health related social needs risk of homeless, material hardship, transpo insecurity [facility] All Active Problems (Updated 09/28/23 @ 06:20 by Lyndsey Merida MD) Pain, dental (Acute) Stress at home (Acute) Strain of left biceps tendon (Acute) Left shoulder pain (Acute) Surgical History (Updated 02/18/22 @ 07:03 by Bethanie Harris NP) shoulder surgery right shoulder, prior to 2011, several procedures Family History (Updated 01/10/22 @ 11:47 by Carly See) Mother No problems noted. Father No problems noted. Sister No problems noted. Sister No problems noted. Son No problems noted. Son No problems noted. Social History (Updated 02/18/22 @ 07:09 by Bethanie Harris NP) Smoking/Tobacco Use Status: Current every day Tobacco Type: cigarettes Tobacco: How many years used: 20 Quit status: not considering quitting Second Hand Exposure: Yes Counseling given: counseling >3 minutes Smoking risk assessment performed?: Yes Alcohol Intake: current Alcohol Intake frequency: other Alcohol type: beer Counseling provided: reduce to 2 or less/day Details: Previous 12 pk per day, cut down the past 2 weeks - 3-4 days without any Drug use: Daily Substance use type: marijuana Counseling given: Yes Counseling provided: provider counseling Details: Self treating stress & anxiety Caregiver/Support person: No Household members: significant other, none and other Details: and going through divorce x6 months Housing: house Number of Children: 2 Pets and animals: Yes Pets and animals: dog(s) Sexually active: Yes Do you think of yourself as: straight/heterosexual Current gender identity: male What is your relationship status?: How often do you talk on the phone with friends or family?: three or more times per week How often do you get together with friends or relatives?: three or more times per week How often do you attend sikh or tenriism services?: decline to answer Do you belong to any clubs or organized social groups?: no Panel score (0-1 are the most socially isolated patients): 1 Frequency: 5-6 times per week Jessica/Uatsdin: None Special jessica needs: No Seatbelt use: never Helmet use: Yes Helmet use: always Drive intox or ride w/intox local company intermodal truck driver: No Do you feel safe at home: Yes Do you feel safe in your relationship?: Yes
[2023-09-28] MEDS: Ketorolac 15 MG/ML VIAL IM (06:46)
[2023-09-28] MEDS: Amoxicillin 875/Clav. 125 TAB PO (06:47)
[2023-09-28] MEDS: Acetaminophen 500 MG TAB 1000 MG PO (06:47)
[2023-09-28 06:59] VITALS: BP 128/74; PULSE 78; RESP 18; TEMP 36.7; O2SAT 98
== END 2023-09-28 06:54 | disposition home or self-care (01) ==
LOC: ER 06:55
PROVIDERS: Emergency Provider Student in an Organized Health Care Education/Training Program; PCP Nurse Practitioner Family
DX: K08.89 Other specified disorders of teeth and supporting structures (principal); F17.210 Nicotine dependence, cigarettes, uncomplicated
CPT/HCPCS: 96372; 99283; J1885

== ENCOUNTER 2024-09-13 21:42 | Outpatient (REF) | payer MEDICAID, SELFPAY ==
[2024-09-13 21:39] LABS: Abs Immature Grans 0.02 10^3/uL (0.0-0.06); Absolute Basophil Count 0.07 10^3/uL (0.0-0.2); Absolute Eosinophil Count 0.24 10^3/uL (0.0-0.7); Absolute Lymphocyte Count 2.54 10^3/uL (1.2-3.4); Absolute Monocyte Count 1.01 10^3/uL (0.1-0.8); Basophils % 0.6 %; Eosinophils % 2.2 %; HGB 13.4 g/dL (13.5-17.5); Immature Grans % 0.2 %; Lymphocytes % 23.4 %; MCH 29.2 pg (27.0-33.0); MCHC 32.7 % (32.0-36.0); MCV 89 fL (80-95); MPV 10.9 fL (8.0-11.0); Monocytes % 9.3 %; Neutrophils % 64.3 %; Platelet Count 250 10^3/uL (130-400); RBC 4.59 10^6/uL (4.36-5.78); RDW 13.2 % (11.8-14.1); RDW-SD 43.1 fL; WBC 10.84 10^3/uL (4.4-10.8)
[2024-09-13 21:42] LABS: Absolute Neutrophil Count 6.97 10^3/uL (1.2-6.7)
[2024-09-13 21:57] LABS: ALT 25 U/L (16-63); AST 23 U/L (15-37); Albumin 4.3 g/dL (3.4-5.0); Alkaline Phosphatase 78 U/L (46-116); Anion Gap 11.3 mmol/L (3-11); BUN 11 mg/dL (7-18); Bilirubin, Total 0.7 mg/dL (0.2-1.0); CO2 29.7 mmol/L (21.0-32.0); CREATININE 0.9 mg/dL (0.70-1.30); Calcium 9.2 mg/dL (8.5-10.1); Chloride 101 mmol/L (98-107); Estimated GFR 105.35 (mL/min/1.73m2); Glucose 86 mg/dL (74-106); Sodium 142 mmol/L (136-145); TSH 6.63 uIU/mL (0.36-3.74); Total Protein 7.3 g/dL (6.4-8.2)
== END 2024-09-13 21:43 | disposition home or self-care (01) ==
LOC: LBN 21:42
PROVIDERS: PCP Nurse Practitioner Family; Visit Provider Physician Assistant Medical
DX: R42 Dizziness and giddiness (principal)
CPT/HCPCS: 80053; 84443; 85025; 87070